=== PATIENT | female | born 1980 ===

== ENCOUNTER 2024-06-20 12:55 | Outpatient (CLI) | payer BC, SELFPAY | END 2024-06-20 12:56 | disposition home or self-care (01) | PROVIDERS: Visit Provider Otolaryngology | DX: J34.89 Other specified disorders of nose and nasal sinuses (principal); B95.61 Methicillin susceptible Staphylococcus aureus infection as the cause of diseases classified elsewhere | CPT/HCPCS: 87070; 87186 ==